=== PATIENT | female | born 1985 | race Caucasian/White ===

== ENCOUNTER 2020-06-11 13:47 | Emergency (ER) | payer OTHER, SELFPAY ==
--- NOTE | ~2020-06-11 | XR_ITS ---
EXAMINATION: XR knee RT 3V DATE: 06/11/2020 14:39 INDICATION: Right knee injury and pain. TECHNIQUE: 3 views of right knee were obtained. COMPARISON: None. FINDINGS: Bone alignment is normal. No fracture. Joint spaces are well maintained. There is no knee j oint effusion. IMPRESSION: 1. Normal right knee. Reviewed, dictated and finalized at location A. Y ROOM SUPERVISOR IMPRESSION: 1. Normal right knee.
[2020-06-11 13:54] VITALS: BP 135/75; PULSE 110; RESP 16; TEMP 36.3; O2SAT 98
--- NOTE | 2020-06-11 14:41 | ED.GENADULT ---
HPI - General Adult General Chief complaint: Extremity Injury, Lower Stated complaint: R KNEE INJURY COVID + Time Seen by Provider: 06/11/20 13:49 Source: patient Mode of arrival: ambulatory Limitations: no limitations History of Present Illness HPI narrative: Patient a 35-year-old female who presents to emergency department for evaluation of right knee injury noting that she fell going up the stairs injuring the right knee since had moderate aching pain with difficulty with weightbearing and activity patient presents noting that she is also Covid positive with loss of smell and taste is her only symptoms has not taken anything for her symptoms Related Data Home Medications Medication Instructions Recorded Confirmed cetirizine 10 mg tablet 10 mg PO DAILY 05/27/19 Allergies Allergy/AdvReac Type Severity Reaction Status Date / Time hydrocodone Allergy Intermediate REDNESS Verified 06/11/20 14:17 amoxicillin Allergy Unknown Rash Verified 06/11/20 14:17 clarithromycin AdvReac Mild Nausea Verified 06/11/20 14:17 Review of Systems Review of Systems: All systems reviewed & are unremarkable except as noted in HPI and below PMFSH Past Medical History Medical History Anxiety Asthma Surgical History Surgical History H/O LEELaura History of cholecystectomy (~2004) [place] teeth removed Family History Family History Grandparent Cerebrovascular accident Diabetes mellitus Family history of glaucoma Hypertension Family history of cardiovascular disease Acute myocardial infarction, Onset Age: 74 Family history of malignant neoplasm Family history of kidney disease Family history of atrial fibrillation Father Hypertension Mother Hypertension Sibling Family history of malignant neoplasm Other No family history of cardiovascular disease No family history of diabetes mellitus No family history of malignant neoplasm Social History Social History Smoking status: Never smoker Alcohol intake: current Exam Narrative: Exam Narrative: GENERAL: Well-appearing, well-nourished, and in no acute distress. HEAD: Normocephalic, atraumatic. EYES: PERRLA and EOMI. ENT: Nares clear, no rhinorrhea or epistaxis. Mucous membranes moist. CHEST: Clear to auscultation. No respiratory distress. No wheezes rales or rhonchi HEART: Regular rate and rhythm. No murmur heard. Normal peripheral pulses. ABDOMEN: Soft, nontender, nondistended EXTREMITIES: Tenderness of the medial aspect of the right knee no deformities noted SKIN: Warm, dry, no rash. NEURO: No focal deficits. Alert and oriented x3. Neurovascularly intact PSYCH: Normal mood and affect. Course Vital Signs Vital signs: Vital Signs Temperature 97.3 F L 06/11/20 13:54 Pulse Rate 110 H 06/11/20 13:54 Respiratory Rate 16 06/11/20 13:54 Blood Pressure 135/75 06/11/20 13:54 Pulse Oximetry 98 06/11/20 13:54 Temperature 97.3 F L 06/11/20 13:54 Pulse Rate 110 H 06/11/20 13:54 Respiratory Rate 16 06/11/20 13:54 Blood Pressure 135/75 06/11/20 13:54 Pulse Oximetry 98 06/11/20 13:54 Medical Decision Making MDM Narrative Medical decision making narrative: Patients injury or pain is consistent with musculoskeletal etiology. No signs of neurological or vascular compromise on exam. Compartments and tisues are soft without signs of compartment syndrome. Pain is felt appropriate for further evaluation on an outpatient basis. Vital Signs Vital Signs: Vital Signs Temperature 97.3 F L 06/11/20 13:54 Pulse Rate 110 H 06/11/20 13:54 Respiratory Rate 16 06/11/20 13:54 Blood Pressure 135/75 06/11/20 13:54 Pulse Oximetry 98 06/11/20 13:54 Temperature 97.3 F L 06/11/20 13:54 Pulse Rate 110 H 06/11
--- NOTE | 2020-06-11 15:07 | PC.NURSE ---
michelle wrap applied to right knee
== END 2020-06-11 15:27 | disposition home or self-care (01) ==
PROVIDERS: Emergency Provider Emergency Medicine; PCP Family Medicine
DX: M25.561 Pain in right knee (principal); U07.1 COVID-19; F41.9 Anxiety disorder, unspecified; J45.909 Unspecified asthma, uncomplicated; W10.9XXA Fall (on) (from) unspecified stairs and steps, initial encounter
CPT/HCPCS: 73562; 99283

== ENCOUNTER 2021-07-21 12:57 | Outpatient (CLI) | payer OTHER, SELFPAY ==
[2021-07-21 13:48] LABS: Add Urine Microscopic? YES; Appearance Urine Clear (Clear); Bacteria Urine Trace /hpf; Bilirubin Urine Negative (Negative); Blood Urine 1+ (Negative); Color Urine Yellow (Yellow); Glucose Urine UA Negative (Negative); Ketones Urine Negative (Negative); Leukocyte Esterase Ur Negative LEU/UL (Negative); Mucus Urine Rare /lpf; Nitrate Urine Negative (Negative); Protein Urine Negative (Negative); RBC Urine 0-2 /hpf (0-2); Specific Grav Ur 1.016 (1.001-1.035); Squamous Epithelial Cell Urine Few /hpf (Few); Urobilinogen Urine Negative mg/dL (<2.0); WBC Urine 0-3 /hpf
== END 2021-07-21 12:58 | disposition home or self-care (01) ==
LOC: ANHLAB 13:00
PROVIDERS: PCP Family Medicine; Visit Provider Obstetrics & Gynecology
DX: R39.9 Unspecified symptoms and signs involving the genitourinary system (principal)
CPT/HCPCS: 81001

== ENCOUNTER 2022-08-30 08:50 | Emergency (ER) | payer OTHER, SELFPAY ==
--- NOTE | 2022-08-30 09:07 | ED.URI ---
HPI - URI/Sore Throat General Chief Complaint: Upper Respiratory Infection Stated Complaint: sorethroat Time Seen by Provider: 08/30/22 09:06 Source: patient and RN notes reviewed Mode of arrival: ambulatory Limitations: no limitations History of Present Illness HPI Narrative: 37-year-old female presents concern for sore throat, fever, aches, chills, sinus pressure, drainage. Reports trouble sleeping due to her symptoms. 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 MD elicited complaint: sore throat Related Data Home Medications Medication Instructions Recorded Confirmed cetirizine 10 mg tablet (Zyrtec) 10 mg PO DAILY 05/27/19 08/30/22 Allergies Allergy/AdvReac Type Severity Reaction Status Date / Time hydrocodone AdvReac Intermediate REDNESS Verified 08/30/22 08:53 amoxicillin AdvReac Mild Rash Verified 08/30/22 08:53 clarithromycin AdvReac Mild Nausea Verified 08/30/22 08:53 Review of Systems Review of Systems: CONSTITUTIONAL: Reports malaise, chills, fever. EYES: Denies visual changes, redness, or discharge. ENT: Reports rhinorrhea, congestion,sore throat. CARDIOVASCULAR: Denies chest pain, palpitations, or edema. RESPIRATORY: Denies cough. Denies dyspnea. GASTROINTESTINAL: Denies abdominal pain, nausea, vomiting, diarrhea SKIN: Denies rash or itching. MUSCULOSKELETAL: Reports myalgia. NEUROLOGIC: Denies headache. All systems reviewed & are unremarkable except as noted in HPI and below PMFSH Past Medical History Medical History Anxiety Asthma Surgical History Surgical History H/O LEEP History of cholecystectomy (~2004) [place] teeth removed Family History Family History Grandparent Cerebrovascular accident Diabetes mellitus Family history of glaucoma Hypertension Family history of cardiovascular disease Acute myocardial infarction, Onset Age: 74 Family history of malignant neoplasm Family history of kidney disease Family history of atrial fibrillation Father Hypertension Mother Hypertension Sibling Family history of malignant neoplasm Other No family history of cardiovascular disease No family history of diabetes mellitus No family history of malignant neoplasm Social History Social History Smoking status: Never smoker Alcohol intake: current Comments At time of signature, agree with nursing past medical, surgical, social and family history. There is no relevant family history pertinent to the presenting complaint Exam Narrative: GENERAL: Well-appearing, well-nourished, and in no acute distress. HEAD: Normocephalic EYES: PERRLA, conjunctivae clear ENT: Nares clear. Mucous membranes moist. TM pearly velázquez with dull light reflex bilaterally; no tragal tenderness. Oropharynx erythematous without lesions. Tonsils enlarged and without exudate, no drooling, no hoarseness, no trismus, uvula midline. NECK: Supple. No lymphadenopathy CHEST: Clear to auscultation, breath sounds equal. No wheezing, rhonchi, rales, or stridor. No respiratory distress, speaks in full sentences. HEART: Regular rate and rhythm. No murmur heard. SKIN: Warm, dry, no rash. NEURO: Alert and oriented x3. PSYCH: Normal mood and affect Course Course Emergency Course: Patient is aware of diagnosis, understands and agrees to treatment plan. Anticipatory guidance given. Patient agrees to follow-up as directed and is aware of reasons to seek care at the emergency department. Portions of this record may have been created with voice recognition software Level of Care: Express Care Visit Vital Signs Vital signs: Reviewed. MDM - URI/Sore Throat MDM Narrative Medical decision making narrative: Differential diagnosis considered: Harper virus, strep pharyngitis, allergic rhinitis, upper respiratory tract
[2022-08-30 09:10] VITALS: BP 143/75; PULSE 104; RESP 18; TEMP 36.8; O2SAT 98
== END 2022-08-30 09:25 | disposition home or self-care (01) ==
PROVIDERS: Emergency Provider Nurse Practitioner
DX: J02.0 Streptococcal pharyngitis (principal); J45.909 Unspecified asthma, uncomplicated; F41.9 Anxiety disorder, unspecified
CPT/HCPCS: 87880; 99213; G0463

== ENCOUNTER 2022-11-30 07:29 | Outpatient (CLI) | payer OTHER, SELFPAY ==
[2022-11-30 09:10] LABS: Hematocrit 43.2 % (37.0-47.0); Hemoglobin 14.4 g/dL (12.0-15.0); Mean Corpuscular HGB Conc 33.3 g/dl (32-36); Mean Corpuscular Volume 93.1 fl (80-100); Mean Platelet Volume 10.1 fl (7.4-10.4); Platelet Count Result 302 k/mm3 (150-375); Red Blood Count 4.64 M/mm3 (4.2-5.4); Red Cell Distribution Width 12.3 % (11.5-14.5); White Blood Count 8.1 K/mm3 (4.5-10.0)
[2022-11-30 09:33] LABS: Alanine Aminotransferase 27 U/L (6-35); Albumin Level 4.3 g/dL (3.5-5.1); Alkaline Phosphatase 85 U/L (38-126); Anion Gap 8 mmol/L (8-16); Aspartate Amino Transferase 28 U/L (14-36); Bilirubin,Total 0.6 mg/dL (0.2-1.3); Blood Urea Nitrogen 11 mg/dL (7-17); Calcium 8.5 mg/dL (8.4-10.2); Carbon Dioxide 24 mmol/L (22-30); Chloride 104 mmol/L (98-107); Cholesterol 190 mg/dL (0-200); Estimated Glomerular Filt Rate > 60; Glucose 90 mg/dL (65-110); HDL Direct 56 mg/dL; Potassium 4.2 mmol/L (3.4-5.0); Sodium 136 mmol/L (137-145); Triglycerides 177 mg/dL (<150)
[2022-11-30 09:42] LABS: LDL Cholesterol Direct 111 mg/dL
== END 2022-11-30 07:30 | disposition home or self-care (01) ==
LOC: ANHLAB 07:31
PROVIDERS: PCP Family Medicine; Visit Provider Family Medicine
DX: E66.9 Obesity, unspecified (principal); Z79.899 Other long term (current) drug therapy
CPT/HCPCS: 36415; 80053; 80061; 84443; 85027

== ENCOUNTER 2023-05-23 14:31 | Outpatient (CLI) | payer OTHER, SELFPAY ==
--- NOTE | ~2023-05-23 | US_ITS ---
EXAMINATION: US pelvic complete w TV DATE: 05/23/2023 15:28 INDICATION: Abnormal uterine and vaginal bleeding TECHNIQUE: Multiple transabdominal and endovaginal sonographic images of the pelvis were obtained. COMPARISON: None. FINDINGS: The uterus measures 8.7 x 4.7 x 5.6 cm. There is a 4.1 x 3.7 x 3.8 cm mass of the uterine f undus which has the appearance of an intramural fibroid. The endometrial complex measures 25 mm. The endometrium is heterogeneous in appearance. The right ovary measures 2.2 x 1.5 x 1.6 cm. The left ova ry measures 2.3 x 1.5 x 1.2 cm. There is normal vascular flow in the ovaries. There is no free fluid in the pelvis. IMPRESSION: 1. Endometrial thickening which may be due to hyperplasia, polyp, or malignancy. Endometrial sampling is recommended. Reviewed, dictated and finalized at location B. MENT MANAGEMENT ANALYST IMPRESSION: 1. Endometrial thickening which may be due to hyperplasia, polyp, or malignancy . Endometrial sampling is recommended.
== END 2023-05-23 14:32 | disposition home or self-care (01) ==
PROVIDERS: PCP Family Medicine; Visit Provider Registered Nurse
DX: N93.9 Abnormal uterine and vaginal bleeding, unspecified (principal); N85.00 Endometrial hyperplasia, unspecified
CPT/HCPCS: 76830; 76856

== ENCOUNTER 2023-08-11 00:30 | Day surgery (SDC) | payer OTHER, SELFPAY ==
[2023-08-02 10:58] VITALS: BMI 35.8
--- NOTE | 2023-08-02 11:04 | PC.NURSE ---
Report to the Outpatient Waiting Room, entrance under the green pavilion located off [facility], at time 0830_ on date _08/11/23 . Planned Procedure Time: _1030__. Time changes happen often and if your time is changed the preop area will call you the afternoon before. - You and your visitor will be asked to self-screen and do not enter if you have any COVID symptoms. - A mask is optional within the hospital at this time. Patients may have clear liquids (water, carbonated beverages, clear teas, apple juice) until 3 hours prior to surgery with a maximum of 20 ounces. - No food from midnight until time of surgery - Infants may have breast milk until 4 hours before surgery, infant formula 6 hours prior to surgery. - Children will be allowed to drink immediately following surgery. If applicable, please bring a bottle or sippy cup to assist with drinking. Juice, water, soda, and popsicles are readily available. For infants on formula, please bring formula the day of surgery. Pacifiers are allowed. Take the following medications with a SIP of water the morning of surgery: NONE DO NOT STOP ANY OF YOUR OTHER PRESCRIPTION MEDICATIONS PRIOR TO SURGERY ?EXCEPT THE FOLLOWING Medications to discontinue per physician NONE Date to take last dose Please no make-up, nail macedonian, hairspray, perfume, deodorant, or body powder the day of surgery. No jewelry (including any body piercings) or valuables the day of surgery, leave them at home. Please take a shower or bath the night before, or the morning of, surgery with an antibacterial soap. Wear comfortable, loose fitting clothing. Children are encouraged to wear pajamas. - Jewelry must be removed prior to entering the operating room. Rings and piercings that are not removed may be cut off. - The hospital will not accept responsibility for valuables. - Please leave all valuables, including medications, at home the day of surgery. If you are going home after surgery, a licensed regional company truck driver must drive you home. - NO public transportation without another adult if you receive anesthesia. - We recommend that an adult stay with you for 24 hours following discharge. - We also recommend that you do not drive, make important decision, drink alcoholic beverages, or take any drugs that were not prescribed by your health care provider for at least 24 hours after your discharge time. For Pediatric surgeries, we recommend two adults accompany the child home. Follow any additional instructions given to you from your surgeon. If you or anyone in your household have experienced Covid symptoms in the past week, please notify your surgeon or the nurse liaison at the phone number below for possible testing. Telephone instructions given to PATIENT__and asked if any additional questions and then verbalized understanding. Patient advised to call surgeon office or pre surgery nurse liaison [phone] if any additional questions.
[2023-08-11] MEDS: ACETAMINOPHEN 500 MG TABLET 1000 MG PO (09:00)
[2023-08-11] MEDS: LACTATED RINGERS 1,000 ML 30 ML IV CONT (09:00)
[2023-08-11 09:30] VITALS: BP 140/84; PULSE 85; RESP 16; TEMP 37.1; O2SAT 99
--- NOTE | 2023-08-11 09:46 | PM.IMHP ---
H&P: HPI History of Present Illness Date/Time: 08/11/23 09:46 Chief Complaint: Abnormal bleeding Narrative: Patient with history or irregular bleeding for over six months, not responding to hormonal management. Endometrial biopsy normal. She had an ultrasound which showed intramural fibroid. She has been offered trial of other hormonal options. Hysteroscopy with dilation and curettage recommended. Review of Systems Review of Systems: All systems reviewed & are unremarkable except as noted in HPI and below Constitutional: Constitutional: Reports no additional constitutional complaints Eyes: Eyes: Reports no additional eye complaints Cardiovascular: Cardiovascular: Reports no additional cardiovascular complaints Respiratory: Respiratory: Reports no additional respiratory complaints Gastrointestinal: Gastrointestinal: Reports no additional gastrointestinal complaints Genitourinary: Genitourinary: Reports no additional female genitourinary complaints and Reports as per HPI Integumentary/Breasts: Skin/Breast: Reports system reviewed and no additional complaints, except as docu Neurologic: Reports system reviewed and no additional complaints, except as documented Psychiatric: Psychiatric: Reports no additional psychiatric complaints Hematologic/Lymphatic: Hematologic/Lymphatic: Reports no additional hematologic/lymphatic complaints [facility] Past Medical History Medical History Abnormal uterine bleeding Anxiety Asthma Surgical History Surgical History H/O LEEP History of cholecystectomy (~2004) [place] teeth removed Family History Family History Grandparent Cerebrovascular accident Diabetes mellitus Family history of glaucoma Hypertension Family history of cardiovascular disease Acute myocardial infarction, Onset Age: 74 Family history of malignant neoplasm Family history of kidney disease Family history of atrial fibrillation Father Hypertension Mother Hypertension Sibling Family history of malignant neoplasm Other No family history of cardiovascular disease No family history of diabetes mellitus No family history of malignant neoplasm Social History Social History Smoking status: Never smoker Second hand tobacco smoke exposure: No Alcohol intake: current Drinks per week: 2 Alcohol use details: social Substance use: never Substance use type: does not use Lack of Transportation: No Lack of Food: Never True Current Housing: I Have Housing Concerned About Future Housing: No Difficulty Paying Gas/Electric Bills: No Difficulty Paying for Meds: No Currently Unemployed: No Education: Master's Degree or Higher Difficulty w/ Childcare or Family Care: No Living arrangements: with family Additional living arrangements comments: single same partner for 4 years Occupation/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 Gender identity (if verbalized by the patient): Female Sexual Orientation (if Verbalized by the Patient): Straight or Heterosexual Spiritual care concerns: No Meds Home Medications and Allergies Home Medications Medication Instructions Recorded Confirmed Type cetirizine 10 mg tablet (Zyrtec) 10 mg PO HS 05/27/19 08/02/23 History omeprazole 40 mg capsule,delayed 40 mg PO HS 08/02/23 08/02/23 History release sertraline 50 mg tablet 50 mg PO HS 08/02/23 08/02/23 History Allergies Allergy/AdvReac Type Severity Reaction Status Date / Time hydrocodone AdvReac Intermediate REDNESS Verified 08/02/23 10:56 amoxicillin AdvReac Mild Rash Verified 08/02/23 10:56 clarithromycin AdvReac Mild Nausea Verified 08/02/23 10:56 Exam Const: General: comfortable and no acute distress
--- NOTE | 2023-08-11 09:49 | WPDHPUPDATE1 ---
History and Physical Update Update Date/Time: 08/11/23 09:49 History and Physical has been reviewed, including an updated exam of the patient. There are NO changes in the patient's condition. Risks, benefits, and alternatives have been discussed and questions answered. Patient agrees to proceed with procedure.
--- NOTE | 2023-08-11 10:43 | WPDANESEPPF ---
Anes - Initial Pre Proc Eval Procedure: Operation Date: 08/11/23 10:30 Proposed Procedures p Hysteroscopy Dilation and Curettage with Removal of any Endometrial Lesion, If Necessary - mItiaz Montes MD Date/Time: 08/11/23 10:43 Surgeon: Imtiaz Montes MD Pre Op Diagnosis: abnormal uterine bleeding Patient Data Age: 38 Gender: F Height: 1.75 m Weight: 111.2 kg Last Vital Signs Temp 98.7 F 08/11/23 09:30 Pulse 85 08/11/23 09:30 Resp 16 08/11/23 09:30 BP 140/84 08/11/23 09:30 Pulse Ox 99 08/11/23 09:30 O2 Del Method Room Air 08/11/23 09:30 Allergies Allergy/AdvReac Type Severity Reaction Status Date / Time hydrocodone AdvReac Intermediate REDNESS Verified 08/11/23 10:15 amoxicillin AdvReac Mild Rash Verified 08/11/23 10:15 clarithromycin AdvReac Mild Nausea Verified 08/11/23 10:15 Home Medications Medication Instructions Recorded Confirmed Type cetirizine 10 mg tablet (Zyrtec) 10 mg PO HS 05/27/19 08/11/23 History omeprazole 40 mg capsule,delayed 40 mg PO HS 08/02/23 08/11/23 History release sertraline 50 mg tablet 50 mg PO HS 08/02/23 08/11/23 History Patient hx anesthesia problems: none Family hx anesthesia problems: none Results Review: All pre-operative results and documents have been reviewed as part of the pre-operative evaluation. [facility] Past Medical History Medical History Abnormal uterine bleeding Anxiety Asthma Surgical History Surgical History H/O LEEP History of cholecystectomy (~2004) [place] teeth removed Family History Family History Grandparent Cerebrovascular accident Diabetes mellitus Family history of glaucoma Hypertension Family history of cardiovascular disease Acute myocardial infarction, Onset Age: 74 Family history of malignant neoplasm Family history of kidney disease Family history of atrial fibrillation Father Hypertension Mother Hypertension Sibling Family history of malignant neoplasm Other No family history of cardiovascular disease No family history of diabetes mellitus No family history of malignant neoplasm Social History Social History Smoking status: Never smoker Second hand tobacco smoke exposure: No Alcohol intake: current Drinks per week: 2 Alcohol use details: social Substance use: never Substance use type: does not use Lack of Transportation: No Lack of Food: Never True Current Housing: I Have Housing Concerned About Future Housing: No Difficulty Paying Gas/Electric Bills: No Difficulty Paying for Meds: No Currently Unemployed: No Education: Master's Degree or Higher Difficulty w/ Childcare or Family Care: No Living arrangements: with family Additional living arrangements comments: single same partner for 4 years Occupation/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 Gender identity (if verbalized by the patient): Female Sexual Orientation (if Verbalized by the Patient): Straight or Heterosexual Spiritual care concerns: No Anes - Eval Final PreProcedure Day of Procedure 08/11/23 10:43 Patient weight: obese Heart: regular rate and rhythm Lungs: clear to auscultation Airway: Mallampati scale class II Neurological: alert and oriented Last oral intake: >/= 8 hours ASA classification: II Emergent: no Anesthetic plan: proceed Anesthesia type and monitoring: general GIVS and standard monitoring Results Review: All pre-operative results and documents have been reviewed as part of the pre-operative evaluation. Informed Consent: The patient's anesthetic plan and its attendant risks and benefits were discussed with the patient/family/POA. Questions were solicited and answers provided
[2023-08-11] MEDS: ceFAZolin 2 GM/D5W 50 ML 2 GM/50 ML BAG IVPB (10:46)
[2023-08-11] MEDS: LIDOCAINE HCL 1% LOCAL INJ 20 ML VIAL 10 ML INFILTRATE (11:19)
[2023-08-11 11:24] VITALS: BP 123/62; PULSE 75; RESP 16
--- NOTE | 2023-08-11 11:25 | W.PM.PROC2 ---
Procedure Note - Detailed Date of Procedure 08/11/23 Pre-op Diagnosis abnormal uterine bleeding Post-op Diagnosis Same (2. Submucosal fibroid) Procedure Performed Hysteroscopy with dilation and curettage and removal of endometrial lesion with Aveta. Surgeon Imtiaz Montes MD Anesthesia MAC and Local Indications Abnormal uterine bleeding not responding to hormonal therapy. Findings Uterus sound to 8 cm, 3.5 cm submucosal fibroid appearing structure at right lower posterior lateral uterus. Insufflation fluid used 2110. Deficit 170cc. Description of Procedure After informed consent was obtained patient was taken to the operating room and adequate IV sedation was administered. Attention was turned to the vagina. Speculum was inserted. Single-tooth tenaculum placed on the anterior lip of the cervix. The uterus was sounded to 8cm. The cervix was dilated to an 6 Brown dilator. The hysteroscope was inserted into the cavity. The findings were the lower posterior growth. The hysteroscope was removed. The Aveta instrument was inserted and the growth was removed completely. Uterine cavity normal. The hysteroscope was removed. A currettage was performed. The single-tooth tenaculum was removed hemostasis was noted at the tenaculum site. Sponge count correct. The patient taken to recovery in stable condition. Estimated Blood Loss 5 Drains No Packing No Pathology Yes (Endometrial shavings and curettings) Complications No immediate complications Condition Stable Disposition Same day [facility] Billing Surgery - Charge Forward: Surgery Billing
[2023-08-11 11:50] VITALS: BP 120/69; PULSE 69; RESP 16
== END 2023-08-11 12:40 | disposition home or self-care (01) ==
PROVIDERS: PCP Family Medicine; Visit Provider Obstetrics & Gynecology
PROC: 0U5B8ZZ Destruction of Endometrium, Via Natural or Artificial Opening Endoscopic (ICD-10-PCS; CPT 58563; principal; 2023-08-11 10:30)
DX: D25.0 Submucous leiomyoma of uterus (principal); N93.9 Abnormal uterine and vaginal bleeding, unspecified; F41.9 Anxiety disorder, unspecified
CPT/HCPCS: 58561; 88305; A9270; J0690; J1100; J2250; J2405; J2704; J3010; J7120

== ENCOUNTER 2024-03-14 09:51 | Outpatient (CLI) | payer OTHER, SELFPAY ==
[2024-03-14 10:29] LABS: Add Urine Microscopic? NO; Appearance Urine Clear (Clear); Bilirubin Urine Negative (Negative); Blood Urine Negative (Negative); Color Urine Yellow (Yellow); Glucose Urine UA Negative (Negative); Ketones Urine Negative (Negative); Leukocyte Esterase Ur Negative LEU/UL (Negative); Nitrate Urine Negative (Negative); Protein Urine Negative (Negative); Specific Grav Ur 1.014 (1.001-1.035); Urobilinogen Urine 0.2 mg/dL (<2.0); pH Urine 6.5 (5.0-9.0)
[2024-03-14 10:32] LABS: Hematocrit 41.4 % (37.0-47.0); Hemoglobin 13.2 g/dL (12.0-15.0); Mean Corpuscular HGB Conc 31.9 g/dl (32-36); Mean Corpuscular Hemoglobin 27.2 pg (26-34); Mean Corpuscular Volume 85.4 fl (80-100); Platelet Count Result 366 k/mm3 (150-375); Red Blood Count 4.85 M/mm3 (4.2-5.4); Red Cell Distribution Width 13.5 % (11.5-14.5); White Blood Count 8.6 K/mm3 (4.5-10.0)
[2024-03-14 11:17] LABS: Alanine Aminotransferase 49 U/L (6-35); Albumin Level 4.3 g/dL (3.5-5.1); Alkaline Phosphatase 112 U/L (38-126); Anion Gap 9 mmol/L (4-12); Aspartate Amino Transferase 33 U/L (14-36); Bilirubin,Total 0.6 mg/dL (0.2-1.3); Blood Urea Nitrogen 14 mg/dL (7-17); Calcium 9.3 mg/dL (8.4-10.2); Carbon Dioxide 26 mmol/L (22-30); Chloride 101 mmol/L (98-107); Cholesterol 192 mg/dL (0-200); Estimated Glomerular Filt Rate > 60; Glucose 98 mg/dL (65-110); HDL Direct 55 mg/dL; Potassium 4.5 mmol/L (3.4-5.0); Sodium 136 mmol/L (137-145); Triglycerides 109 mg/dL (<150)
[2024-03-14 11:20] LABS: Vitamin D 25 Hydroxy 14.4 ng/mL
[2024-03-14 11:28] LABS: LDL Cholesterol Direct 101 mg/dL
== END 2024-03-14 09:52 | disposition home or self-care (01) ==
PROVIDERS: PCP Family Medicine; Visit Provider Nurse Practitioner
DX: Z00.00 Encounter for general adult medical examination without abnormal findings (principal)
CPT/HCPCS: 36415; 80053; 80061; 81003; 82306; 84443; 85027

== ENCOUNTER 2024-05-20 01:03 | Day surgery (SDC) | payer OTHER, SELFPAY ==
[2024-05-15 08:16] VITALS: BMI 37.0
--- NOTE | 2024-05-15 08:22 | PC.NURSE ---
Report to the Outpatient Waiting Room, entrance under the green pavilion located off [facility], at time _0930_ on date _[id number]_. Planned Procedure Time: _1130_.? Time changes happen often and if your time is changed the preop area will call you the afternoon before. - You and your visitor will be asked to self-screen and do not enter if you have any COVID symptoms. Please call surgeon if you need to reschedule. - A mask is optional within the hospital at this time. Patients may have clear liquids (water, carbonated beverages, clear teas, apple juice) until 3 hours prior to surgery with a maximum of 20 ounces. - No food from midnight until time of surgery and no smoking Take only the following medications with a SIP of water on the morning of surgery: ___None___ DO NOT STOP ANY OF YOUR OTHER PRESCRIPTION MEDICATIONS PRIOR TO SURGERY EXCEPT THE FOLLOWING Medications to discontinue per physician __Vitamins____ Date to take last ntxg__[id number]__ Please no make-up, nail french, hairspray, perfume, deodorant, or body powder the day of surgery.? No jewelry (including any body piercings) or valuables the day of surgery, leave them at home.? Please take a shower or bath the night before, or the morning of, surgery with an antibacterial soap.? Wear comfortable, loose fitting clothing.? - Jewelry must be removed prior to entering the operating room.? Rings and piercings that are not removed may be cut off. - The hospital will not accept responsibility for valuables.? - Please leave all valuables, including medications, at home the day of surgery. If you are going home after surgery, a licensed local city driver must drive you home.? - NO public transportation without another adult if you receive anesthesia. - We recommend that an adult stay with you for 24 hours following discharge. - We also recommend that you do not drive, make important decision, drink alcoholic beverages, or take any drugs that were not prescribed by your health care provider for at least 24 hours after your discharge time. Follow any additional instructions given to you from your surgeon. Telephone instructions given to _Marlin___and asked if any additional questions and then verbalized understanding. Patient advised to call surgeon office or pre surgery nurse liaison [phone] if any additional questions.
--- NOTE | 2024-05-17 10:42 | PM.IMHP ---
H&P: HPI History of Present Illness Date/Time: 05/17/24 10:42 Chief Complaint: Urge incontinence Narrative: She has refractory urge incontinence. She has undergone a successful trial of sacral neuromodulation with greater than 50% improvement. She presents for placement of a permanent device Review of Systems Review of Systems: All systems reviewed & are unremarkable except as noted in HPI and below PMFSH Past Medical History Medical History Abnormal uterine bleeding Anxiety Asthma Surgical History Surgical History H/O LEEP History of cholecystectomy (~2004) History of hysteroscopy S/P dilation and curettage [place] teeth removed Family History Family History Grandparent Cerebrovascular accident Diabetes mellitus Family history of glaucoma Hypertension Family history of cardiovascular disease Acute myocardial infarction, Onset Age: 74 Family history of malignant neoplasm Family history of kidney disease Family history of atrial fibrillation Father Hypertension Mother Hypertension Sibling Family history of malignant neoplasm Other No family history of cardiovascular disease No family history of diabetes mellitus No family history of malignant neoplasm Social History Social History Smoking status: Never smoker Second hand tobacco smoke exposure: No Alcohol intake: current Drinks per week: 2 Alcohol use details: social Substance use: never Substance use type: does not use Lack of Transportation: No Lack of Food: Never True Current Housing: I Have Housing Concerned About Future Housing: No Difficulty Paying Gas/Electric Bills: No Difficulty Paying for Meds: No Currently Unemployed: No Education: Master's Degree or Higher Difficulty w/ Childcare or Family Care: No Living arrangements: with family Additional living arrangements comments: single same partner for 4 years Occupation/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 Gender identity (if verbalized by the patient): Female Sexual Orientation (if Verbalized by the Patient): Straight or Heterosexual Spiritual care concerns: No Meds Home Medications and Allergies Home Medications Medication Instructions Recorded Confirmed Type cetirizine 10 mg tablet (Zyrtec) 10 mg PO HS 05/27/19 05/15/24 History omeprazole 40 mg capsule,delayed 40 mg PO HS #90 caps 11/16/23 05/15/24 Rx release cholecalciferol (vitamin D3) 25 25 mcg PO DAILY #90 tabs 03/21/24 05/15/24 Rx mcg (1,000 unit) tablet sertraline 50 mg tablet 50 mg PO HS #90 tabs 03/21/24 05/15/24 Rx cyanocobalamin (vitamin B-12) 1,000 mcg PO DAILY 05/15/24 05/15/24 History 1,000 mcg lozenges drospirenone (contraceptive) 4 mg 1 tablet PO HS 05/15/24 05/15/24 History (28) tablet (Slynd) Allergies Allergy/AdvReac Type Severity Reaction Status Date / Time hydrocodone AdvReac Intermediate REDNESS Verified 05/15/24 08:14 amoxicillin AdvReac Mild Rash Verified 05/15/24 08:14 clarithromycin AdvReac Mild Nausea Verified 05/15/24 08:14 Exam Narrative: No acute distress Alert orient x3 Normal breathing Assessment and Plan Assessment and plan (1) Urge incontinence: Code(s): N39.41 - Urge incontinence Status: Acute Assessment and Plan: Placement of sacral neurostimulator device/InterStim
--- NOTE | ~2024-05-20 | XR_ITS ---
INTRAOPERATIVE FLUOROSCOPY: CLINICAL HISTORY: 39 years old Female; NEUROSTIMULATOR IMPLANT STAGE TWO PROCEDURE COMMENTS: Limited intraoperative fluoroscopy of the sacrum was performed. CUMULATIVE DOSE: 47 mGy FLUOROSCOPY TIME: 47 seconds FINDINGS/IMPRESSION: @ Please refer to operative note for further details. Reviewed, dictated and finalized at location [facility]
--- NOTE | 2024-05-20 07:21 | WPDHPUPDATE1 ---
History and Physical Update Update Date/Time: 05/20/24 07:21 History and Physical has been reviewed, including an updated exam of the patient. There are NO changes in the patient's condition. Risks, benefits, and alternatives have been discussed and questions answered. Patient agrees to proceed with procedure.
--- NOTE | 2024-05-20 07:24 | WPDHPUPDATE1 ---
History and Physical Update Update Date/Time: 05/20/24 07:24 History and Physical has been reviewed, including an updated exam of the patient. There are NO changes in the patient's condition. Risks, benefits, and alternatives have been discussed and questions answered. Patient agrees to proceed with procedure.
[2024-05-20 09:30] VITALS: BP 146/85; PULSE 86; RESP 16; TEMP 36.6; O2SAT 97; BMI 37.6
--- NOTE | 2024-05-20 10:13 | P.PNAN_ITS ---
Anes - Initial Pre Proc Eval Procedure: Operation Date: 05/20/24 11:30 Proposed Procedures p Neurostimulator Implant Stage Two - Servando Ram MD Date/Time: 05/20/24 10:13 Surgeon: Servando Ram MD Pre Op Diagnosis: stress urinary incont Patient Data Age: 39 Gender: F Height: 1.75 m Weight: 113.6 kg Allergies Allergy/AdvReac Type Severity Reaction Status Date / Time hydrocodone AdvReac Intermediate REDNESS Verified 05/15/24 08:14 amoxicillin AdvReac Mild Rash Verified 05/15/24 08:14 clarithromycin AdvReac Mild Nausea Verified 05/15/24 08:14 Home Medications Medication Instructions Recorded Confirmed Type cetirizine 10 mg tablet (Zyrtec) 10 mg PO HS 05/27/19 05/15/24 History cholecalciferol (vitamin D3) 25 25 mcg PO DAILY #90 tabs 03/21/24 05/15/24 Rx mcg (1,000 unit) tablet sertraline 50 mg tablet 50 mg PO HS #90 tabs 03/21/24 05/15/24 Rx cyanocobalamin (vitamin B-12) 1,000 mcg PO DAILY 05/15/24 05/15/24 History 1,000 mcg lozenges drospirenone (contraceptive) 4 mg 1 tablet PO HS 05/15/24 05/15/24 History (28) tablet (Slynd) omeprazole 40 mg capsule,delayed See Rx Instructions .Route 05/20/24 Rx release .COMPLEX #90 caps Patient hx anesthesia problems: none Family hx anesthesia problems: none Results Review: All pre-operative results and documents have been reviewed as part of the pre- operative evaluation. [facility] Past Medical History Medical History Abnormal uterine bleeding Anxiety Asthma Surgical History Surgical History H/O LEEP History of cholecystectomy (~2004) History of hysteroscopy S/P dilation and curettage [place] teeth removed Family History Family History Grandparent Cerebrovascular accident Diabetes mellitus Family history of glaucoma Hypertension Family history of cardiovascular disease Acute myocardial infarction, Onset Age: 74 Family history of malignant neoplasm Family history of kidney disease Family history of atrial fibrillation Father Hypertension Mother Hypertension Sibling Family history of malignant neoplasm Other No family history of cardiovascular disease No family history of diabetes mellitus No family history of malignant neoplasm Social History Social History Smoking status: Never smoker Second hand tobacco smoke exposure: No Alcohol intake: current Drinks per week: 2 Alcohol use details: social Substance use: never Substance use type: does not use Lack of Transportation: No Lack of Food: Never True Current Housing: I Have Housing Concerned About Future Housing: No Difficulty Paying Gas/Electric Bills: No Difficulty Paying for Meds: No Currently Unemployed: No Education: Master's Degree or Higher Difficulty w/ Childcare or Family Care: No Living arrangements: with family Additional living arrangements comments: single same partner for 4 years Occupation/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 Gender identity (if verbalized by the patient): Female Sexual Orientation (if Verbalized by the Patient): Straight or Heterosexual Spiritual care concerns: No Anes - Eval Final PreProcedure Day of Procedure 05/20/24 10:13 Patient weight: obese Heart: regular rate and rhythm Lungs: clear to auscultation Airway: Mallampati scale class II Neurological: alert and oriented Last oral intake: >/= 8 hours ASA classification: II Emergent: no Anesthetic plan: proceed Anesthesia type and monitoring: general GIVS and standard monitoring Results Review: All pre-operative results and documents have been reviewed as part of the pre- operative evaluation. Informed Consent: The patient's anesthetic plan and its attendant risks and benefits were discussed with the patient/family/POA. Questions were solicited and answers provided to the satisfaction of the patient/family/POA.
[2024-05-20] MEDS: LACTATED RINGERS 1,000 ML 30 ML IV CONT (10:15)
[2024-05-20] MEDS: ceFAZolin 2 GM/D5W 50 ML 2 GM/50 ML BAG IVPB (11:11)
[2024-05-20] MEDS: ceFAZolin SODIUM 1 GM VIAL (11:28)
[2024-05-20] MEDS: BUPIVACAINE/EPINEPHRINE 0.5% 50 ML VIAL 20 ML INFILTRATE (11:29)
[2024-05-20 11:46] VITALS: BP 137/82; PULSE 94; RESP 16; O2SAT 98
--- NOTE | 2024-05-20 11:49 | W.PM.PROC2 ---
Procedure Note - Detailed Date of Procedure 05/20/24 Pre-op Diagnosis Urge incontinence Post-op Diagnosis Same Procedure Performed Implantation of sacral lead 42128 Placement of implantable pulse generator 17106 Complex neurostimulator programming impedance check [id number] Surgeon Servando Ram MD Anesthesia MAC and Local Indications This is a patient with refractory urge urinary incontinence. They have undergone a successful trial of sacral nerve stimulation. They present today for permanent implantation. They understand the risks of bleeding, infection, decreased efficacy, need for revision and battery changes. They agree to proceed Findings See dictated Description of Procedure They were correctly identified and informed consent was obtained. There brought to the operating room. There placed in the prone position. There were given appropriate perioperative antibiotics. A time-out performed. I used fluoroscopy to edwin out my sacral landmarks in the AP and the lateral orientation. I anesthetized the skin. I entered the S3 foramen on the patient's left. I monitored the needle with fluoroscopy. I got appropriate Antonio and toe response at a low threshold. I made a skin robert. I placed a stylet. I placed the lead introducer sheath. I thinned placed and deployed to my lead. deployment was done under live fluoroscopy and percutaneously. I got appropriate responses again at a low threshold. I marked out the site of the pulse generator. I anesthetized the skin and made that incision. I created a subcutaneous pocket to house the pulse generator. I tunneled the lead towards this pocket. Appropriate connections were made between the lead and the battery. It was placed in the pocket. The battery was programmed and impedances were checked and found to be normal. I irrigated out all wounds. I ensured hemostasis. I closed the subcutaneous tissues with 2 Vicryl. I closed the skin with 4 0 Vicryl. Glue was applied. There then awakened and transferred to the PACU in stable condition. Implants Sacral neurostimulator Estimated Blood Loss 5 Drains No Packing No Pathology None sent Condition Stable Disposition PACU
[2024-05-20 12:15] VITALS: BP 131/78; PULSE 79; RESP 16
[2024-05-20 12:40] VITALS: BP 130/74; PULSE 83; RESP 16
== END 2024-05-20 12:50 | disposition home or self-care (01) ==
PROVIDERS: PCP Family Medicine; Visit Provider Urology
PROC: (CPT 64561; principal; 2024-05-20 11:30)
DX: N39.41 Urge incontinence (principal); E66.9 Obesity, unspecified; Z68.37 Body mass index [BMI] 37.0-37.9, adult
CPT/HCPCS: 64561; 64590; 99199; C1767; C1778; C1787; J0690; J1100; J1885; J2003; J2004; J2250; J2405; J2704; J3010; J7120

== ENCOUNTER 2024-12-06 07:49 | Outpatient (CLI) | payer OTHER, SELFPAY ==
[2024-12-06 08:33] LABS: Hematocrit 42.6 % (37.0-47.0); Hemoglobin 13.9 g/dL (12.0-15.0); Mean Corpuscular HGB Conc 32.6 g/dl (32-36); Mean Corpuscular Hemoglobin 29.1 pg (26-34); Mean Corpuscular Volume 89.3 fl (80-100); Platelet Count Result 324 k/mm3 (150-375); Red Blood Count 4.77 M/mm3 (4.2-5.4); Red Cell Distribution Width 12.5 % (11.5-14.5); White Blood Count 7.6 K/mm3 (4.5-10.0)
[2024-12-06 09:19] LABS: Alanine Aminotransferase 49 U/L (6-35); Albumin Level 4.4 g/dL (3.5-5.1); Alkaline Phosphatase 87 U/L (38-126); Anion Gap 8 mmol/L (4-12); Aspartate Amino Transferase 36 U/L (14-36); Bilirubin,Total 0.8 mg/dL (0.2-1.3); Blood Urea Nitrogen 15 mg/dL (7-17); Calcium 9.1 mg/dL (8.4-10.2); Carbon Dioxide 24 mmol/L (22-30); Chloride 105 mmol/L (98-107); Cholesterol 196 mg/dL (0-200); Estimated Glomerular Filt Rate > 60; Glucose 98 mg/dL (65-110); HDL Direct 51 mg/dL; Potassium 4.2 mmol/L (3.4-5.0); Sodium 137 mmol/L (137-145); Triglycerides 124 mg/dL (<150)
[2024-12-06 09:30] LABS: LDL Cholesterol Direct 102 mg/dL
[2024-12-06 10:26] LABS: Vitamin D 25 Hydroxy 28.2 ng/mL
== END 2024-12-06 07:50 | disposition home or self-care (01) ==
PROVIDERS: PCP Family Medicine; Visit Provider Nurse Practitioner
DX: Z00.00 Encounter for general adult medical examination without abnormal findings (principal); E55.9 Vitamin D deficiency, unspecified
CPT/HCPCS: 36415; 80053; 80061; 82306; 84443; 85027